=== PATIENT | male | born 1985 | race Caucasian/White ===

== ENCOUNTER 2018-07-08 08:38 | Emergency (ER) | payer OTHER ==
[2018-07-08] MEDS ORDERED: TDAP ADULT 0.5 ML INJ (BOOSTRIX) IM ONE (10:22)
[2018-07-08] MEDS ORDERED: LIDOCAINE 2% 5 ML SDV ONE (10:55)
[2018-07-08] MEDS ORDERED: DOXYCYCLINE HYCLATE 100 MG CAP/TAB PO ONE (11:42)
[2018-07-08] MEDS ORDERED: IBUPROFEN 800 MG TAB PO ONE (11:42)
--- NOTE | 2018-07-08 11:46 | EDPHY ---
H & P Stated Complaint: finger injury Time Seen by Provider: 07/08/18 08:58 HPI/ROS: Chief complaint: Right middle finger injury History of present illness: This is a 32-year-old male who presents to the emergency department for a right middle finger injury. Patient was lifting weights when he dropped one of them on the tip of his finger. He has sustained a significant injury to the tip of the finger. He reports significant pain. Bleeding, although bleeding has been controlled with a dressing. He denies abnormal coolness or paresthesias in the finger. He does not want move the finger secondary to pain. He denies other injuries. - Medical/Surgical History Hx Asthma: No Hx Chronic Respiratory Disease: No Hx Diabetes: No Hx Cardiac Disease: No Hx Renal Disease: No Hx Cirrhosis: No Hx Alcoholism: No Hx HIV/AIDS: No Hx Splenectomy or Spleen Trauma: No Other PMH: denies. - Social History Smoking Status: Never smoked - Physical Exam Exam: General: Alert, nontoxic, appears uncomfortable and anxious. Skin: The tip of the right middle finger is severely avulsed. The nail is completely displaced and was not recovered. The distal nail bed is lacerated completely across. Musculoskeletal: He is flexing and extending his right middle finger in the DIP , PIP and MCP joint although it is limited, he complains of significant pain. Vascular: The avulsed piece of tissue from the finger tip has delayed capillary refill. Rest of the finger capillary refill is brisk. Neurological: Light touch and two-point discrimination sensation testing is intact in the finger including in the avulsed tissue. Constitutional: Initial Vital Signs Temperature (C) 36.9 C 07/08/18 08:40 Heart Rate 99 07/08/18 08:40 Respiratory Rate 18 07/08/18 08:40 Blood Pressure 153/86 H 07/08/18 08:40 O2 Sat (%) 100 07/08/18 08:40 O2 Delivery Mode Room Air Allergies/Adverse Reactions: Cephalosporins Allergy (Verified 07/08/18 08:40) Penicillins Allergy (Verified 07/08/18 08:40) Home Medications: Medication Instructions Recorded Doxycycline Hyclate [Vibramycin 100 mg PO BID 5 Days cap 07/08/18 100 MG (*)] Hydrocodone/APAP 5/325 [[place] 1 tab PO Q6H #10 tab 07/08/18 5/325 (*)] Medical Decision Making - Diagnostics Imaging Results: Imaging Impressions Finger X-Ray 07/08/18 08:47 Impression: Soft tissue injury at the tip of the right third finger without evidence for fracture. Imaging: I viewed and interpreted images myself Procedures: Procedure: Laceration repair. Verbal consent was obtained from the patient. The 2 cm laceration on the right middle finger was anesthetized in the usual fashion. The wound was irrigated, draped and explored to its base with a gloved finger. There were no deep structures involved. No tendon injury was identified. The wound was repaired with 5 0 Prolene, simple interrupted sutures The wound repair was moderately complex repair requiring replacement of avulsed tissue and alignment of the rim of the nail bed. The procedure was performed by myself. Procedure: Nail bed reconstruction. Laceration repair: Verbal consent was obtained from the patient. A nail bed laceration was identified on the right middle finger of the right hand. The finger was anesthetized in the usual fashion. The wound was scrubbed, draped and explored to its base with a gloved finger. The nail plate was removed. There was no fracture identified below the nail bed. The nail bed was reconstructed with 5-0 rapidly dissolving Vicryl. After repair of the nail bed a piece of nonadherent dressing and aluminum was inserted into the nail fold to maintain patency. The procedure was performed by myself. Wound was dressed with tube gauze. ED Course/Re-evaluation: Patient seen under the supervision of my secondary supervising physician Dr. Doroteo Pradhan. Patient presents to the emergency department for a right middle finger injury. He has a significant avulsion with loss of nail and disruption of nail bed to the right middle finger. The avulsed tissue has delayed capillary refill, sensation does appear intact. I have consulted with Dr. Villavicencio of hand surgery. He is comfortable with primary closure in the emergency room with follow-up in his clinic. Wound has been cleaned, repaired and dressed. His tetanus is up dated. He has multiple allergies, I have started him on doxycycline prophylactically. He is referred to hand surgery, the importance of close follow-up is discussed. Return precautions are given. The patient voiced understanding and agreement with plan. Differential Diagnosis: Included but not limited to simple laceration, deep structure injury including bony fracture, nail bed injury, foreign body contamination - Data Points Medications Given: Discontinued Medications Diphtheria/Tetanus/Acell Pertussis (Boostrix) 0.5 ml IM .ONCE ONE Stop: 07/08/18 10:23 Last Admin: 07/08/18 10:27 Dose: 0.5 ml Doxycycline Hyclate (Doxycycline Hyclate) 100 mg PO EDNOW ONE PRN Reason: Protocol Stop: 07/08/18 11:43 Last Admin: 07/08/18 11:46 Dose: 100 mg Ibuprofen (Motrin) 800 mg PO EDNOW ONE Stop: 07/08/18 11:43 Last Admin: 07/08/18 11:46 Dose: 800 mg Departure - Departure Disposition: Home, Routine, Self-Care Clinical Impression: Finger laceration Qualifiers: Encounter type: initial encounter Finger: middle finger Damage to nail status: with damage Foreign body presence: without foreign body Laterality: right Qualified Code(s): S61.312A - Laceration without foreign body of right middle finger with damage to nail, initial encounter Condition: Good Instructions: Finger Laceration (ED) Additional Instructions: Please call Hand surgery today to arrange close follow-up Take antibiotics as prescribed until finished In regards to pain control see the following: Use ibuprofen [600] mg [3] times a day for the next 2-3 days for pain In addition You have been prescribed [[place]] for pain. [[place]] contains Tylenol, do not take extra Tylenol/acetaminophen/Apap with it. It is sedating. If symptoms worsen or new symptoms develop return to the emergency department for recheck Referrals: NONE *PRIMARY CARE P,. [Primary Care Provider] - As per Instructions Faustino Villavicencio MD [Medical Doctor] - As per Instructions Prescriptions: Doxycycline Hyclate [Vibramycin 100 MG (*)] 100 mg PO BID 5 Days cap Hydrocodone/APAP 5/325 [[place] 5/325 (*)] 1 tab PO Q6H #10 tab
[2018-07-08 11:55] VITALS: BP 113/74
== END 2018-07-08 11:55 | disposition home or self-care (01) ==
PROC: 0HQFXZZ Repair Right Hand Skin, External Approach (ICD-10-PCS; principal; 2018-07-08)
PROC: 0HQQXZZ Repair Finger Nail, External Approach (ICD-10-PCS; principal; 2018-07-08)
DX: S61.312A Laceration without foreign body of right middle finger with damage to nail, initial encounter (principal); Y92.89 Other specified places as the place of occurrence of the external cause; Y93.B3 Activity, free weights; Y99.9 Unspecified external cause status; Z23 Encounter for immunization; Z88.0 Allergy status to penicillin